=== PATIENT | female | born 1940 | race Caucasian/White ===

== ENCOUNTER 2020-08-09 08:25 | Inpatient (IN) | payer MEDICARE ==
[2020-08-09 23:22] LABS: Troponin I 0.016 ng/mL (< 0.028)
--- NOTE | 2020-08-09 23:44 | PDOC.HHP ---
Hospitalist HPI - History of Present Illness Weakness, steady History of Present Illness: This is a 80-year-old male patient with a history of hypothyroidism, hypertension and hyperlipidemia who presents as a transfer from [place] on account of stroke status post TPA for higher level care. She previously tested for covid with mild symptoms on 07/10/20 Patient notes she was in her usual state of health when today while sitting on a watching TV suddenly noticed blurring and lack of focus. She became dizzy and had an episode of vomiting. She tried walking to the bathroom emboli she was unsteady and had to hold onto things. She called her granddaughter who helped her and activated EMS. She was sent to [place] where she was assessed to have a stroke and given TPA. Her symptoms resolved within 15 minutes of TPA initiation. Labs on the outside facility showed an unremarkable CBC, creatinine slightly elevated at 1.19 with no baseline, glucose was 141. Brain CT and CT angiogram were all unremarkable. Chest x-ray showed no evidence of acute intrathoracic event. She was then transferred here for higher level care and further monitoring. On arrival her blood pressure was 163/74, pulse 68, respiratory rate 15, temperature 97.9 and saturating 99% on room air. She was stable and had no neurological deficits. Hospitalist team was consulted for admission Hospitalist ROS - Review of Systems Constitutional: denies: fever, sweats Respiratory: denies: cough, shortness of breath, hemoptysis, SOB with excertion Gastrointestinal: denies: nausea, vomiting, abdominal pain, diarrhea Musculoskeletal: denies: neck pain, shoulder pain, arm pain, back pain Neurological: denies: weakness, numbness, incoordination, change in speech All other systems reviewed; all pertinent +/- noted in HPI/Subj - Medication Medications: Medications: Currently refer to ambulatory list. Allergies: No known drug allergies. Hospitalist History - Past Medical History Cardiac: reports: HTN, Hyperlipidemia - Past Surgical History Past Surgical History: reports: Cystoscopy, Tubal Ligation - Family History Family History: reports: no pertinent history - Social History Smoking Status: Never smoker Alcohol: reports: None Living Situation: With Family - Exam General Appearance: awake alert Eye: PERRL, anicteric sclera ENT: normocephalic atraumatic Heart: RRR, no murmur, no gallops, no rubs Respiratory: CTAB, no wheezes, no rales, no ronchi Gastrointestinal: soft, non-tender, non-distended, normal bowel sounds Extremities: no cyanosis, no clubbing, no edema Neurological: cranial nerve grossly intact, no weakness, no focal deficits Musculoskeletal: normal tone, normal strength Psychiatric: normal affect, normal behavior, A&O x 3 Hospitalist Results - Labs Lab results: Troponin I 0.016 ng/mL (< 0.028) 08/09/20 22:10 Hospitalist H&P A/P - Plan Plan: This 80-year-old female patient history of hypertension hyperlipidemia presents with stroke and is status post TPA with resolved symptoms. Stroke status post TPA TPA was given not 6:48 PM 08/09/2020. We will admit to CCU and monitor for total of 24 hours on TPN Monitor overnight Echocardiogram, telemetry monitoring, fall precautions, neurochecks Lipid profile in a.m. Hold aspirin Neuro consult in a.m. Hypertension Resume home blood pressure medications once verified Monitor BP CKD Monitor BMP -Previous covid infection 07/10/20 with mild symptoms VT prophylaxisnone for now. CODE STATUSfull code
[2020-08-10 04:18] LABS: Cardiac Risk 2.6 (Less than 4.5)
[2020-08-10] MEDS ORDERED: hydrALAZINE 25 MG TAB PO PRN (09:46)
--- NOTE | 2020-08-10 09:49 | PDOC.HOSPP ---
- Subjective Encounter Date: 08/10/20 Encounter Time: 09:47 Subjective: Ms. Vyas was seen today in follow-up of acute CVA, with blurred vision. She says she is back to baseline. She notes an occasional headache, but overall doing fine. No new deficits. - Objective Vital Signs & Weight: Weight Weight 150 lb 2.399 oz - Exam Eye: PERRL, anicteric sclera Heart: RRR, no murmur, no gallops, no rubs, normal peripheral pulses Respiratory: CTAB, no wheezes, no rales, no ronchi, normal chest expansion, no tachypnea, normal percussion Gastrointestinal: soft, non-tender, non-distended, normal bowel sounds, no palpable masses, no hepatomegaly Extremities: no cyanosis, no edema Skin: normal turgor, no rashes Musculoskeletal: normal strength, no muscle wasting Hosp A/P (1) Acute CVA (cerebrovascular accident) Code(s): I63.9 - CEREBRAL INFARCTION, UNSPECIFIED Status: Acute (2) Hypertension Code(s): I10 - ESSENTIAL (PRIMARY) HYPERTENSION Status: Chronic (3) Hyperlipidemia Code(s): E78.5 - HYPERLIPIDEMIA, UNSPECIFIED Status: Chronic - Plan * Acute CVA - s/p TPS- she is back to her baseline. She does not have any neurological deficits. * MRI today and Echo, and Neurology Evaluation * Continue to monitor on Telemetry for AFIB * Post TPA protocol * HTN- reconcile and re-start her home medications * Check lipid panel * PT/OT
--- NOTE | 2020-08-10 12:07 | MRI ---
MRI BRAIN WITHOUT CONTRAST: HISTORY: An 80-year-old female with difficulty focusing with left eye. Dizziness. FINDINGS: Correlation is made with the previous day's CT scan. No restricted diffusion is seen. There are multiple foci of T2 prolongation in the periventricular w geogrette matter consistent with chronic small-vessel ischemic disease. Changes of cortical atrophy are p resent. The ventricular size is appropriate and the basilar cisterns patent. No evidence of infarct, hemorrhage, midline shift, or abnormal extraaxial fluid collections is seen. There is mucosal disease in the right maxillary sinus. IMPRESSION: No evidence of acute intracranial process. POS: AH
[2020-08-10 14:50] LABS: SARS-CoV-2 PCR by NAA Not Detected (NotDetected)
--- NOTE | 2020-08-10 16:05 | CON ---
NEUROLOGY CONSULTATION DATE OF CONSULTATION: 08/10/2020 REASON FOR CONSULTATION: Stroke-like symptoms, status post tPA. HISTORY OF PRESENT ILLNESS: Ms. Vyas is an 80-year-old female with medical history significant for hypothyroidism, hypertension, hyperlipidemia, presented as a transfer from [facility] because of blurred vision, weakness, and unsteadiness and is status post tPA for higher level of care. The patient has been previously tested for COVID with mild symptoms on 07/10/2020. Per patient, she was in her usual state of health. On 08/09/2020 while watching TV when she noticed blurred vision and lack of focus. She also became dizzy and has an episode of vomiting and when she tried to walk to the restroom, she was extremely unsteady on her feet and has to hold onto things and she called her granddaughter who called the EMS and she was sent to [facility], where she was assessed for posterior circulation stroke and given tPA. The symptoms resolved within 15 minutes of tPA. Head CT was negative for acute intracranial pathology. CT angiogram was also unremarkable. A chest x-ray did not show acute cardiopulmonary process. She was then transferred to our hospital for higher level of care. In the emergency room, her blood pressure 163/74, pulse 68, respiratory rate 18. The patient is currently stable and denies any neurological deficits. The patient denies nausea, vomiting, chest pain, abdominal pain, recent illness or recent exposure to COVID, focal weakness or focal paresthesias. REVIEW OF SYSTEMS: All systems were reviewed and were negative except the pertinent positives and negatives mentioned in the HPI. MEDICATIONS: Please refer to the ambulatory list for complete list of medications. ALLERGIES: NO KNOWN DRUG ALLERGIES. PAST MEDICAL HISTORY: Hypertension, hyperlipidemia. PAST SURGICAL HISTORY: Cystoscopy, tubal ligation. FAMILY HISTORY: No significant family history. SOCIAL HISTORY: The patient lives with family. Denies smoking, alcohol, illegal drug use. PHYSICAL EXAMINATION: VITAL SIGNS: Blood pressure 160/70, pulse 80, respiratory rate 18. CVS: Regular rate and rhythm. CHEST: Clear. ABDOMEN: Soft. NECK: Supple. NEUROLOGIC: Mental status, the patient is alert and oriented to person, place, and time. Recent and remote memory intact. Fund of knowledge is appropriate. Cranial nerves 2 through 12 intact. Motor, muscle tone and bulk are normal. Strength 5/5 bilaterally. Sensory intact. Cerebellar, finger-nose testing intact. Gait deferred due to patient's safety reason. DATA REVIEWED: I reviewed the labs were essentially unremarkable. Head CT did not reveal any acute intracranial pathology. CTA of the head and neck did not reveal hemodynamically significant stenosis. ASSESSMENT AND PLAN: (1) Acute CVA (cerebrovascular accident) Code(s): I63.9 - CEREBRAL INFARCTION, UNSPECIFIED Status: Acute (2) Hypertension Code(s): I10 - ESSENTIAL (PRIMARY) HYPERTENSION Status: Chronic (3) Hyperlipidemia Code(s): E78.5 - HYPERLIPIDEMIA, UNSPECIFIED Status: Chronic Ms. Vyas is an 80-year-old female with history significant for hypertension, hyperlipidemia, presented with posterior circulation stroke- like symptoms which were resolved 50 minutes after the tPA. TPA was given at 6:48 p.m. on 08/09/2020, consider head CT 24 hours post tPA to rule out bleed. If negative, then start aspirin 81 mg for secondary stroke prevention, consider starting high-intensity statin for secondary stroke prevention. Permissive control of blood pressure at this time. Strict control of blood glucose. Echocardiogram to evaluate for left ventricular ejection fraction. Telemetry to rule out arrhythmias. Neuro checks every 4 hours. Check hemoglobin A1c, fasting lipid panel, and TSH. Continue home medications. Continue medical management per primary team. PT/OT/Speech. Deep vein thrombosis prophylaxis with SCDs. The plan discussed in detail with the patient, daughter at bedside, and also with the nursing staff. Job ID: [id number]
[2020-08-10] MEDS: Atorvastatin Calcium 40 MG TAB PO SCH (19:54)
--- NOTE | 2020-08-10 22:01 | CT ---
CT OF BRAIN PERFORMED WITHOUT CONTRAST ENHANCEMENT: 08/10/20 HISTORY: Post TPA. Evaluation for bleed. COMPARISON: Prior day's exam. There is generalized ventricular and sulcal prominence. There are no signs of intracerebral hemorrhag e or extra-axial fluid collections. No mass lesion or mass effect. Chronic white matter changes are n oted. IMPRESSION: No acute intracranial abnormalities. POS: OFF
[2020-08-10 23:13] VITALS: BMI 23.0
--- NOTE | 2020-08-11 08:11 | PDOC.HOSPP ---
- Subjective Encounter Date: 08/11/20 Encounter Time: 08:09 Subjective: Ms. Vyas was seen today in follow-up of a CVA. She is feeling better today. She had a headache last night that she associates with a lack of sleep. She is concerned about her blood pressure medication regimen. - Objective Vital Signs & Weight: Vital Signs (12 hours) Temp Pulse Resp BP Pulse Ox 08/11/20 03:59 98.1 F 66 16 149/73 H 97 08/10/20 23:30 98 08/10/20 22:54 97.9 F 63 16 183/83 H 98 Weight Weight 66.678 kg Hospitalist ROS - Review of Systems Eyes: denies: vision change Respiratory: denies: shortness of breath Cardiovascular: denies: chest pain, palpitations Gastrointestinal: denies: nausea, vomiting, diarrhea, constipation Musculoskeletal: reports: back pain, leg pain Neurological: denies: weakness, numbness - Medication Medications: Active Medications Generic Name Dose Route Start Last Admin Trade Name Freq PRN Reason Stop Dose Admin Atorvastatin Calcium 40 mg 08/10/20 21:00 08/10/20 19:54 Atorvastatin Calcium 40 Mg Tab PO 40 mg HS MIRIAM Administration Hydralazine HCl 25 mg 08/10/20 09:46 08/10/20 09:57 Hydralazine 25 Mg Tab PO 25 mg TID PRN Administration SBP Greater Than 170 - Exam Eye: PERRL, anicteric sclera Neck: no JVD, no carotid bruit Heart: no murmur, no gallops, no rubs, normal peripheral pulses (d.p pulses bilaterally) Respiratory: no wheezes, no rales, no ronchi, normal chest expansion Extremities: no edema Neurological: cranial nerve grossly intact, no weakness (5/5 motor strength in upper and lower extremities bilaterally.). negative: vision deficit Musculoskeletal: normal strength Psychiatric: A&O x 3 Hosp A/P (1) Acute CVA (cerebrovascular accident) Code(s): I63.9 - CEREBRAL INFARCTION, UNSPECIFIED Status: Acute (2) Hypertension Code(s): I10 - ESSENTIAL (PRIMARY) HYPERTENSION Status: Chronic - Plan Acute CVA- continue with neurology Hypertension- monitor BP and continue on Hydralazine.
[2020-08-11 10:26] LABS: #Basophils 0.1 thou/uL (0.0-0.2); #Eosinphils 0.2 thou/uL (0.0-0.7); #Lymphocytes 2.3 thou/uL (1.20-3.40); #Monocytes 0.6 thou/uL (0.11-0.59); %Eosinophils 2.4 % (0.0-10.0); %Lymphocytes 25.1 % (21.0-51.0); %Monocytes 6.2 % (0.0-10.0); %Neutrophils 65.4 % (42.0-75.0); Hemoglobin 12.6 g/dL (12.0-16.0); Mean Corpuscular HGB CONC 32.4 g/dL (32.0-36.0); Mean Corpuscular Hemoglobin 30.9 pg (27.0-31.0); Mean Corpuscular Volume 95.2 fL (78.0-98.0); Mean Platelet Volume 7.4 fL (7.4-10.4); Platelet Count 284 thou/uL (130-400); RBC Distribution Width 11.3 % (11.5-14.5); Red Blood Cell (RBC) Count 4.08 mill/uL (4.20-5.40); White Blood Cell (WBC) Count 9.2 thou/uL (4.8-10.8)
[2020-08-11 10:35] LABS: Anion Gap 17 mmol/L (10-20); BUN (Urea Nitrogen) 16 mg/dL (9.8-20.1); Calc. Creatinine Clearance 49 mL/min (70-130); Calcium 9.8 mg/dL (7.8-10.44); Carbon Dioxide 20 mmol/L (23-31); Chloride 104 mmol/L (98-107); Glucose 185 mg/dL (83-110); Potassium 3.7 mmol/L (3.5-5.1); Sodium 137 mmol/L (136-145)
--- NOTE | 2020-08-11 11:41 | PDOC.HOSPP ---
- Subjective Encounter Date: 08/11/20 Encounter Time: 11:39 Subjective: Ms. Vyas was seen today in follow-up of acute CVA with blurred vision. Her symptoms have completely resolved. - Objective Vital Signs & Weight: Vital Signs (12 hours) Temp Pulse Resp BP Pulse Ox 08/11/20 07:35 97 08/11/20 03:59 98.1 F 66 16 149/73 H 97 Weight Weight 147 lb Result Diagrams: 08/11/20 10:05 08/11/20 10:05 Hospitalist ROS - Medication Medications: Active Medications Generic Name Dose Route Start Last Admin Trade Name Freq PRN Reason Stop Dose Admin Atorvastatin Calcium 40 mg 08/10/20 21:00 08/10/20 19:54 Atorvastatin Calcium 40 Mg Tab PO 40 mg HS MIRIAM Administration Hydralazine HCl 25 mg 08/10/20 09:46 08/10/20 09:57 Hydralazine 25 Mg Tab PO 25 mg TID PRN Administration SBP Greater Than 170 - Exam Eye: PERRL, anicteric sclera Heart: RRR, no murmur, no gallops, no rubs, normal peripheral pulses Respiratory: CTAB, no wheezes, no rales, no ronchi, normal chest expansion, no tachypnea, normal percussion Gastrointestinal: soft, non-tender, non-distended, normal bowel sounds, no palpable masses, no hepatomegaly, no splenomegaly Extremities: no cyanosis, no edema Hosp A/P (1) Acute CVA (cerebrovascular accident) Code(s): I63.9 - CEREBRAL INFARCTION, UNSPECIFIED Status: Acute (2) Hypertension Code(s): I10 - ESSENTIAL (PRIMARY) HYPERTENSION Status: Chronic (3) Hyperlipidemia Code(s): E78.5 - HYPERLIPIDEMIA, UNSPECIFIED Status: Chronic - Plan * Acute CVA - s/p TPS- she is back to her baseline. * MRI results noted * Echo is pending * Continue to monitor on Telemetry for AFIB * HTN- reconcile and re-start her home medications * Check lipid panel * PT/OT
[2020-08-11] MEDS ORDERED: Bisoprolol Fumarate 5 MG TAB PO SCH (12:15)
--- NOTE | 2020-08-11 13:34 | PDOC.NEUPN ---
- Subjective Encounter Date: 08/11/20 Subjective: Mrs. Vyas is back to her baseline and denies any new complaints in the last 24 hours. - Objective Vital Signs & Weight: Vital Signs (12 hours) Temp Pulse Pulse Pulse Resp BP BP 08/11/20 11:55 97.5 F L 61 18 08/11/20 10:36 77 79 142/70 H 204/93 H 08/11/20 07:35 08/11/20 03:59 98.1 F 66 16 BP Pulse Ox 08/11/20 11:55 184/80 H 98 08/11/20 10:36 08/11/20 07:35 97 08/11/20 03:59 149/73 H 97 Weight Weight 147 lb Result Diagrams: 08/11/20 10:05 08/11/20 10:05 Radiology Reviewed by me: Yes EKG Reviewed by me: Yes ROS - Review of Systems Constitutional: denies: fever, chills, sweats, weakness, malaise, other Eyes: denies: pain, vision change, conjunctivae inflammation, eyelid inflammation, redness, other ENT: denies: ear pain, ear discharge, nose pain, nose discharge, nose congestion, mouth pain, mouth swelling, throat pain, throat swelling, other Respiratory: denies: cough, dry, shortness of breath, hemoptysis, SOB with excertion, pleuritic pain, sputum, wheezing, other Gastrointestinal: denies: nausea, vomiting, abdominal pain, diarrhea, constipation, melena, hematochezia, other Genitourinary: denies: dysuria, frequency, incontinence, hematuria, retention, other Musculoskeletal: denies: neck pain, shoulder pain, arm pain, back pain, hand pain, leg pain, foot pain, other Skin: denies: rash, lesions, jarred, bruising, other Neurological: denies: weakness, numbness, incoordination, change in speech, confusion, seizures, other - Medication Medications: Active Medications Generic Name Dose Route Start Last Admin Trade Name Freq PRN Reason Stop Dose Admin Atorvastatin Calcium 40 mg 08/10/20 21:00 08/10/20 19:54 Atorvastatin Calcium 40 Mg Tab PO 40 mg HS MIRIAM Administration Hydralazine HCl 25 mg 08/10/20 09:46 08/10/20 09:57 Hydralazine 25 Mg Tab PO 25 mg TID PRN Administration SBP Greater Than 170 - Exam General Appearance: awake alert Eye: PERRL ENT: normocephalic atraumatic Neck: supple Respiratory: CTAB Cardiovascular: RRR Gastrointestinal: soft Extremities: no cyanosis Skin: normal turgor Neurological: no focal deficits, no new deficit Musculoskeletal: normal tone, normal strength, no muscle wasting PSYCH: normal affect, normal behavior, A&O x 3 Results - Labs Result Diagrams: 08/11/20 10:05 08/11/20 10:05 Lab results: WBC 9.2 thou/uL (4.8-10.8) 08/11/20 10:05 Hgb 12.6 g/dL (12.0-16.0) 08/11/20 10:05 Hct 38.9 % (36.0-47.0) 08/11/20 10:05 MCV 95.2 fL (78.0-98.0) 08/11/20 10:05 Plt Count 284 thou/uL (130-400) 08/11/20 10:05 Neutrophils % 65.4 % (42.0-75.0) 08/11/20 10:05 Sodium 137 mmol/L (136-145) 08/11/20 10:05 Potassium 3.7 mmol/L (3.5-5.1) 08/11/20 10:05 Chloride 104 mmol/L (98-107) 08/11/20 10:05 Carbon Dioxide 20 mmol/L (23-31) L 08/11/20 10:05 BUN 16 mg/dL (9.8-20.1) 08/11/20 10:05 Creatinine 0.94 mg/dL (0.6-1.1) 08/11/20 10:05 Glucose 185 mg/dL (83-110) H 08/11/20 10:05 Calcium 9.8 mg/dL (7.8-10.44) 08/11/20 10:05 Troponin I 0.016 ng/mL (< 0.028) 08/09/20 22:10 - EKG Interpretation EKG: Normal sinus rhythm - Radiology Interpretation MRI - head Additional Comment: MRI of the brain was negative for acute intracranial process PN A/P (1) Acute CVA (cerebrovascular accident) Code(s): I63.9 - CEREBRAL INFARCTION, UNSPECIFIED Status: Acute (2) tPA adm status 24 hr [employer] Code(s): Z92.82 - S/P ADMN TPA IN DIFF FAC W/N LAST 24 HR BEF ADM TO CRNT FAC Status: Acute (3) Hyperlipidemia Code(s): E78.5 - HYPERLIPIDEMIA, UNSPECIFIED Status: Chronic (4) Hypertension Code(s): I10 - ESSENTIAL (PRIMARY) HYPERTENSION Status: Chronic - Plan Daily Plan: out of bed/ambulate Mrs. Vyas is a 80-year-old female who presented with strokelike symptoms at an outside facility and is s/p TPA. Her symptoms including dizziness nausea vom iting suspicious for posterior circulation stroke resolved within 15 minutes of TPA administration and she is back to her baseline. MRI of the brain reviewed which was negative for acute intracranial pathology. CTA did not reveal hemodynamically significant stenosis. 2D echo is pending at this time. Continue telemetry to rule out arrhythmias. Neurochecks every 4 hours. Continue aspirin and high intensity statin for secondary stroke prevention. Strict control of blood pressure and blood glucose. Continue home medications. PT/OT/speech. Continue medical management per primary team. Plan discussed in detail with the patient.
--- NOTE | 2020-08-11 14:56 | PDOC.EEG ---
Neurology EEG Report - Report Report: This EEG was performed using 24 channel [employer] video EEG machine with 24 disc electrodes. This was an extended 2 hours 5 minutes of inpatient video EEG recording. Digital analysis of the EEG was done for spike and seizure detection which revealed no abnormalities. Background: There is a nonsustained posterior background rhythm of 8.5 -9 Hz. The background rhythm attenuates with eye opening enhances with eye closure Hyperventilation: Not performed. Photic Stimulation: No significant response. Sleep: Drowsiness is observed. EEG Diagnosis: Rare irregular theta activity seen during the recording. Nonsustained posterior background rhythm. Clinical Interpretation: This EEG is consistent with mild generalized nonspecific cerebral dysfunction.
[2020-08-11 15:35] LABS: Bilirubin Negative (Negative); Blood, Urine Trace (Negative); Clarity Clear (Clear); Glucose, Urine (Dipstick) Normal (Negative); Ketone, Urine Negative (Negative); Leukocyte 500 Leu/uL (Negative); Nitrite Negative (Negative); Protein, Urine (Dipstick) Negative (Neg-Trace); RBC/HPF 0-3 HPF (0-3); Specific Gravity, Urine 1.011 (1.002-1.036); Squamous Epithelial 0-3 HPF (0-3); Urobilinogen Normal mg/dL (Less than 2); WBC/HPF 21-50 HPF (0-3); pH, Urine 7.5 (5.0-9.0)
[2020-08-11 15:46] LABS: Bacteria/HPF 4+ HPF (None Seen)
[2020-08-11] MEDS ORDERED: Acetaminophen 325 MG TAB PO PRN (18:25)
[2020-08-11] MEDS: Sulfameth/Trimethoprim DS 800-160mg TAB PO SCH (21:25)
[2020-08-11] MEDS: Atorvastatin Calcium 40 MG TAB PO SCH (21:25)
[2020-08-12] MEDS ORDERED: Levothyroxine Sodium 50 MCG TAB PO SCH (06:00)
--- NOTE | 2020-08-12 07:42 | PDOC.HOSPP ---
- Subjective Encounter Date: 08/12/20 Encounter Time: 07:41 Subjective: Ms. Vyas was seen this morning in follow-up of an acute CVA. She has no new complaints today. - Objective Vital Signs & Weight: Vital Signs (12 hours) Temp Pulse Resp BP Pulse Ox 08/12/20 03:52 98.1 F 52 L 16 122/60 97 08/11/20 23:05 97.8 F 54 L 18 129/60 97 08/11/20 21:25 97 08/11/20 21:23 98.1 F 66 18 134/64 97 Weight Weight 66.678 kg I&O: 08/11/20 08/12/20 08/13/20 06:59 06:59 06:59 Intake Total 480 Output Total 100 Balance 380 Result Diagrams: 08/11/20 10:05 08/11/20 10:05 Hospitalist ROS - Review of Systems Eyes: denies: vision change Neurological: denies: weakness, numbness, incoordination - Medication Medications: Active Medications Generic Name Dose Route Start Last Admin Trade Name Freq PRN Reason Stop Dose Admin Acetaminophen 650 mg 08/11/20 18:25 08/11/20 18:51 Acetaminophen 325 Mg Tab PO 650 mg Q4H PRN Administration Headache/Fever or Pain Atorvastatin Calcium 40 mg 08/10/20 21:00 08/11/20 21:25 Atorvastatin Calcium 40 Mg Tab PO 40 mg HS MIRIAM Administration Hydralazine HCl 25 mg 08/10/20 09:46 08/10/20 09:57 Hydralazine 25 Mg Tab PO 25 mg TID PRN Administration SBP Greater Than 170 Levothyroxine Sodium 50 mcg 08/12/20 06:00 08/12/20 06:30 Levothyroxine Sodium 50 Mcg Tab PO 50 mcg 0600 MIRIAM Administration Trimethoprim/Sulfamethoxazole 1 tab 08/11/20 21:00 08/11/20 21:25 Sulfameth/Trimethoprim Ds 800-160mg Tab PO 1 tab BID MIRIAM Administration - Exam Eye: PERRL, anicteric sclera Neck: no JVD Heart: RRR, no murmur, no gallops, no rubs, normal peripheral pulses Respiratory: CTAB, no wheezes, no rales, no ronchi, normal chest expansion, no tachypnea Extremities: no cyanosis, no clubbing, no edema Neurological: cranial nerve grossly intact, normal sensation to touch, no wea kness, no focal deficits Musculoskeletal: normal tone, normal strength Psychiatric: A&O x 3 Hosp A/P (1) Acute CVA (cerebrovascular accident) Code(s): I63.9 - CEREBRAL INFARCTION, UNSPECIFIED Status: Acute (2) Hypertension Code(s): I10 - ESSENTIAL (PRIMARY) HYPERTENSION Status: Chronic - Plan * Acute CVA- continue with neurology. * Hypertension- stable. continue to monitor. * hyperlipidemia- stable.
[2020-08-12 07:53] VITALS: BP 139/64; TEMP 98.2
[2020-08-12] MEDS: Sulfameth/Trimethoprim DS 800-160mg TAB PO SCH (07:53)
--- NOTE | 2020-08-12 08:58 | PDOC.HOSPP ---
- Subjective Encounter Date: 08/12/20 Encounter Time: 08:57 Subjective: Ms. Vyas was seen today in follow-up of Acute CVA. She is feeling better. Her symptoms never returned. - Objective Vital Signs & Weight: Vital Signs (12 hours) Temp Pulse Resp BP Pulse Ox 08/12/20 07:51 98.2 F 57 L 18 139/64 97 08/12/20 03:52 98.1 F 52 L 16 122/60 97 08/11/20 23:05 97.8 F 54 L 18 129/60 97 08/11/20 21:25 97 08/11/20 21:23 98.1 F 66 18 134/64 97 Weight Weight 147 lb I&O: 08/11/20 08/12/20 08/13/20 06:59 06:59 06:59 Intake Total 480 Output Total 100 Balance 380 Result Diagrams: 08/11/20 10:05 08/11/20 10:05 Hospitalist ROS - Medication Medications: Active Medications Generic Name Dose Route Start Last Admin Trade Name Freq PRN Reason Stop Dose Admin Acetaminophen 650 mg 08/11/20 18:25 08/11/20 18:51 Acetaminophen 325 Mg Tab PO 650 mg Q4H PRN Administration Headache/Fever or Pain Atorvastatin Calcium 40 mg 08/10/20 21:00 08/11/20 21:25 Atorvastatin Calcium 40 Mg Tab PO 40 mg HS MIRIAM Administration Bisoprolol Fumarate 5 mg 08/12/20 09:00 08/12/20 07:53 Bisoprolol Fumarate 5 Mg Tab PO 5 mg DAILY MIRIAM Administration Hydralazine HCl 25 mg 08/10/20 09:46 08/10/20 09:57 Hydralazine 25 Mg Tab PO 25 mg TID PRN Administration SBP Greater Than 170 Hydrochlorothiazide 25 mg 08/12/20 09:00 08/12/20 07:53 Hydrochlorothiazide 25 Mg Tab PO 25 mg DAILY MIRIAM Administration Levothyroxine Sodium 50 mcg 08/12/20 06:00 08/12/20 06:30 Levothyroxine Sodium 50 Mcg Tab PO 50 mcg 0600 MIRIAM Administration Trimethoprim/Sulfamethoxazole 1 tab 08/11/20 21:00 08/12/20 07:53 Sulfameth/Trimethoprim Ds 800-160mg Tab PO 1 tab BID MIRIAM Administration - Exam Eye: PERRL, anicteric sclera Heart: RRR, no murmur, no gallops, no rubs, normal peripheral pulses Respiratory: CTAB, no wheezes, no rales, no ronchi, normal chest expansion Gastrointestinal: soft, non-tender, non-distended, normal bowel sounds, no palpable masses, no hepatomegaly, no splenomegaly Extremities: no cyanosis, no edema Hosp A/P (1) Acute CVA (cerebrovascular accident) Code(s): I63.9 - CEREBRAL INFARCTION, UNSPECIFIED Status: Acute (2) Hypertension Code(s): I10 - ESSENTIAL (PRIMARY) HYPERTENSION Status: Chronic (3) Hyperlipidemia Code(s): E78.5 - HYPERLIPIDEMIA, UNSPECIFIED Status: Chronic - Plan * Acute CVA - s/p TPA- she is back to her baseline. * HTN- blood pressure is stable, but she did require occasional PRN medication * Stable for discharge home
[2020-08-12] MEDS ORDERED: Hydrochlorothiazide 25 MG TAB PO SCH (09:00)
[2020-08-12] MEDS ORDERED: Bisoprolol Fumarate 5 MG TAB PO SCH (09:00)
[2020-08-12] MEDS ORDERED: Aspirin 325 MG TAB PO SCH (09:30)
--- NOTE | 2020-08-12 17:40 | PDOC.DS.DS ---
Provider - Provider Date of Admission: 08/09/20 21:58 Date of Discharge: 08/12/20 Admitting Provider: Kendrick Menchaca MD Consultations: Neurology Primary Care Physician: Pooja Clinton MD Course - Hospital Course Hospital Course: Ms. Vyas is a pleasant 80-year-old female that has a history of hypertension and hyperlipidemia. She presented to the emergency room with difficulty focusing and seeing. She was brought to the emergency room in [place] and then transferred to our facility after she was assessed as having a stroke and given TPA. Within 15 minutes of receiving the TPA her symptoms resolved. She was admitted to the ICU and placed on a post TPA protocol. She had an uneventful hospital course and continued to remain well. MRI of the brain was negative for CVA. Echocardiogram was essentially negative with a normal ejection fraction and there was some evidence of diastolic dysfunction but no other significant lesions. A full dose aspirin as well as a statin was added to her regimen and she was able to be discharged home and have close outpatient follow-up. Pertinent Studies: CT Brain MRI- Brain Echocardiogram Resuscitation Status: 08/09/20 22:38 Resuscitation Status Routine Resuscitation Status: FULL: Full Resuscitation - Labs Lab Results: 08/11/20 10:05 08/11/20 10:05 Abnormal Lab Results - Last 48 hrs 08/11/20 10:05: Carbon Dioxide 20 L 08/11/20 10:05: RBC 4.08 L, RDW 11.3 L, Monocytes # 0.6 H 08/11/20 14:15: Urine Blood Trace A, Ur Leukocyte Esterase 500 A, Urine WBC 21- 50 A, Urine Bacteria 4+ A - Physical Exam Vitals: Vital Signs (12 hours) Temp Pulse Resp BP Pulse Ox 08/12/20 07:51 98.2 F 57 L 18 139/64 97 Weight Weight 147 lb Physical Exam: The patient was seen and examined on the day of discharge. Problem - Problem (1) Acute CVA (cerebrovascular accident) Code(s): I63.9 - CEREBRAL INFARCTION, UNSPECIFIED Status: Acute (2) Hypertension Code(s): I10 - ESSENTIAL (PRIMARY) HYPERTENSION Status: Chronic (3) Hyperlipidemia Code(s): E78.5 - HYPERLIPIDEMIA, UNSPECIFIED Status: Chronic Plan - Discharge Medications Prescriptions: hydrALAZINE [Apresoline] 25 mg PO TID PRN #30 tab PRN Reason: Sbp Greater Than 160 Aspirin [Aspirin EC] 325 mg PO DAILY #30 tablet. Sulfamethoxazole/Trimethoprim [Bactrim DS] 1 tab PO BID #6 tab Home Medications: Medication Instructions Recorded Confirmed Type Atorvastatin Calcium 40 mg PO DAILY 08/11/20 08/11/20 History Bisoprolol Fumarate [Zebeta] 5 mg PO DAILY 08/11/20 08/11/20 History Hydrochlorothiazide 25 mg PO DAILY 08/11/20 08/11/20 History Levothyroxine Sodium [Euthyrox] 50 mcg PO DAILY 08/11/20 08/11/20 History Aspirin [Aspirin EC] 325 mg PO DAILY #30 tablet. 08/12/20 Rx Sulfamethoxazole/Trimethoprim 1 tab PO BID #6 tab 08/12/20 Rx [Bactrim DS] hydrALAZINE [Apresoline] 25 mg PO TID PRN #30 tab 08/12/20 Rx Allergies: No Known Drug Allergies Allergy (Verified 08/10/20 00:34) - Discharge Instructions Discharge Instructions:: Follow-up with your Primary Care Provider in 2 weeks - Follow up Plan Referrals: Pooja Clinton MD [Primary Care Provider] - Disposition: HOME Quality - Care Measures CORE MEASURES:: Stroke/TIA - Stroke/TIA Did you prescribe antithrombotic therapy?: Yes Did you prescribe anticoagulant for A Fib/Flutter?: Yes Did you prescribe a statin medication?: Yes
== END 2020-08-12 10:44 | disposition home or self-care (01) | DRG 65 ==
LOC: ERS 08:25 → ERHOLD 21:58 → 2SE 08-10 22:53
PROVIDERS: ADMIT Student in an Organized Health Care Education/Training Program; ATTEND Internal Medicine
PROC: 4A00X4Z Measurement of Central Nervous Electrical Activity, External Approach (ICD-10-PCS; principal; 2020-08-11)
DX: I63.9 Cerebral infarction, unspecified (principal); Z92.82 Status post administration of tPA (rtPA) in a different facility within the last 24 hours prior to admission to current facility; E03.9 Hypothyroidism, unspecified; F41.9 Anxiety disorder, unspecified; E78.5 Hyperlipidemia, unspecified; E78.00 Pure hypercholesterolemia, unspecified; Z20.822 Contact with and (suspected) exposure to COVID-19; I12.9 Hypertensive chronic kidney disease with stage 1 through stage 4 chronic kidney disease, or unspecified chronic kidney disease; N18.9 Chronic kidney disease, unspecified; H53.8 Other visual disturbances; Z86.16 Personal history of COVID-19; Z90.710 Acquired absence of both cervix and uterus; Z98.42 Cataract extraction status, left eye; Z98.41 Cataract extraction status, right eye; Z79.82 Long term (current) use of aspirin; Z87.440 Personal history of urinary (tract) infections; Z98.51 Tubal ligation status
CPT/HCPCS: 36415; 70450; 70551; 80048; 80061; 81003; 81015; 85025; 87635; 93306; 95712; 95816; 95819; 95957; 99285; U0003; U0005